=== PATIENT | male | born 1990 | race Caucasian/White ===

== ENCOUNTER 2016-09-16 08:57 | Day surgery (SDC) | payer OTHER ==
[~2016-09-16] VITALS: Ht 175.3 cm; Wt 97.5 kg
[~2016-09-16 08:57] MED LIST: AUGMENTIN875TAB PO; BUT/APAP/CA3 PO; MAALOX/BEN PO; PREVACID15 M1 PO
[2016-09-16 14:37] VITALS: BP 105/66
== END 2016-09-16 11:35 | disposition home or self-care (01) | DRG 392 ==
LOC: ENDO 08:57 → ORM 10:30 → ENDO 11:35 → ORM 11:50 → ENDO 13:00
PROVIDERS: ATTEND Surgery
PROC: 0DB38ZX Excision of Lower Esophagus, Via Natural or Artificial Opening Endoscopic, Diagnostic (ICD-10-PCS; principal; 2016-09-16)
PROC: 0DB78ZX Excision of Stomach, Pylorus, Via Natural or Artificial Opening Endoscopic, Diagnostic (ICD-10-PCS; 2016-09-16)
DX: R13.10 Dysphagia, unspecified (principal); K21.0 Gastro-esophageal reflux disease with esophagitis; K29.50 Unspecified chronic gastritis without bleeding; Z87.891 Personal history of nicotine dependence

== ENCOUNTER → 2018-04-23 | Outpatient (REF) | payer OTHER | END | disposition home or self-care (01) | DRG 696 | LOC: LAB 09:46 | PROVIDERS: ATTEND Nurse Practitioner Family | DX: R30.0 Dysuria (principal) ==

== ENCOUNTER 2020-05-26 | Emergency (ER) | payer OTHER ==
[2020-05-26] MEDS ORDERED: AMLODIPINE BESYL5 MG PO (12:33)
[2020-05-26 12:43] LABS: HEMATOCRIT 41.3 % (39.0-50.0); HEMOGLOBIN 14.3 g/dl (14.0-18.0); IMMATURE GRANULOCYTES 0.2 % (0.0-5.0); MEAN CELL VOLUME 86.2 fL CALC (80.0-100.0); MEAN CORPUSCULAR HGB 29.9 pG CALC (26.0-32.0); MEAN CORPUSCULAR HGB CONC 34.6 g/dL CAL (32.0-36.0); NEUT# 3.79 thou/uL (1.82-7.42); RED BLOOD COUNT 4.79 mill/uL (4.70-6.10); RED CELL DISTRI WIDTH 11.5 % (11.5-15.5)
[2020-05-26 12:56] LABS: ALKALINE PHOSPHATASE 76 u/l (38-126); ANION GAP 11 (6-22 (CALC)); BUN 11 mg/dL (9-20); BUN/CREATININE RATIO 14 (12-20 (CALC)); CARBON DIOXIDE 25 mmol/l (22-30); CHLORIDE 104 mmol/l (95-108); CREATININE 0.8 mg/dL (0.7-1.3); GFR > 60 ML/MIN (>=60 (CALC)); GFR FOR AFR.AMER. > 60 ML/MIN (>=60 (CALC)); LIPASE 60 u/l (23-300); POTASSIUM 4.1 mmol/l (3.5-5.1); SGOT/AST 35 u/l (17-59); SODIUM 136 mmol/l (137-146)
[2020-05-26 12:57] LABS: BILIRUBIN, TOTAL 0.7 mg/dL (0.0-1.4); TOTAL PROTEIN 8.4 g/dL (6.3-8.2)
== END 2020-05-26 15:21 | disposition home or self-care (01) | DRG 392 ==
DX: K29.70 Gastritis, unspecified, without bleeding (principal); I10 Essential (primary) hypertension; K76.0 Fatty (change of) liver, not elsewhere classified; F17.200 Nicotine dependence, unspecified, uncomplicated; Z20.822 Contact with and (suspected) exposure to COVID-19
CPT/HCPCS: Q9967

== ENCOUNTER 2021-01-14 19:21 | Emergency (ER) | payer OTHER ==
[~2021-01-14] VITALS: Ht 175.3 cm; Wt 88.0 kg
[~2021-01-14 19:21] MED LIST changes: +AMLODIPINE BESYL5 MG PO
[2021-01-14] MEDS ORDERED: AUGMENTIN1 M1 PO (20:34)
[2021-01-14] MEDS ORDERED: MEDDOSEPAK PO (20:35)
[2021-01-14 20:42] LABS: URINE BILIRUBIN - DIPSTICK NEGATIVE (NEGATIVE); URINE BLOOD DIPSTICK NEGATIVE (NEGATIVE); URINE COLOR YELLOW; URINE GLUCOSE - DIPSTICK NEGATIVE (NEGATIVE); URINE KETONE NEGATIVE (NEGATIVE); URINE LEUK ESTERASE NEGATIVE (NEGATIVE); URINE PROTEIN - DIPSTICK NEGATIVE (NEG-TRACE); URINE SPECIFIC GRAVITY 1.015; URINE UROBILINOGEN - DIPSTICK 0.2 E.U./dL (0.2)
[2021-01-14 20:43] LABS: HEMOGLOBIN 13.6 g/dl (14.0-18.0); IMMATURE GRANULOCYTES 0.1 % (0.0-5.0); MEAN CELL VOLUME 92.1 fL CALC (80.0-100.0); MEAN CORPUSCULAR HGB 30.6 pG CALC (26.0-32.0); MEAN CORPUSCULAR HGB CONC 33.2 g/dL CAL (32.0-36.0); NEUT# 6.82 thou/uL (1.82-7.42); RED BLOOD COUNT 4.45 mill/uL (4.70-6.10)
[2021-01-14 20:47] LABS: URINE NITRITE - DIPSTICK NEGATIVE (Negative)
[2021-01-14 21:00] LABS: ALBUMIN 4.7 g/dL (3.2-5.0); ALKALINE PHOSPHATASE 74 u/l (38-126); AMYLASE 61 u/l (30-110); ANION GAP 14 (6-22 (CALC)); BILIRUBIN, TOTAL 0.6 mg/dL (0.0-1.4); BUN 11 mg/dL (9-20); BUN/CREATININE RATIO 16 (12-20 (CALC)); CARBON DIOXIDE 25 mmol/l (22-30); CHLORIDE 105 mmol/l (95-108); CREATININE 0.7 mg/dL (0.7-1.3); GFR > 60 ML/MIN (>=60 (CALC)); GFR FOR AFR.AMER. > 60 ML/MIN (>=60 (CALC)); LIPASE 95 u/l (23-300); SGOT/AST 23 u/l (17-59); SODIUM 140 mmol/l (137-146); TOTAL PROTEIN 7.7 g/dL (6.3-8.2)
[2021-01-14] MEDS ORDERED: PROTONIX40 M2 PO (22:11)
[2021-01-14 22:44] VITALS: BP 144/87
== END 2021-01-14 22:55 | disposition home or self-care (01) | DRG 392 ==
LOC: ED 19:21
DX: K29.70 Gastritis, unspecified, without bleeding (principal); K44.9 Diaphragmatic hernia without obstruction or gangrene; I10 Essential (primary) hypertension; K76.0 Fatty (change of) liver, not elsewhere classified; F17.200 Nicotine dependence, unspecified, uncomplicated
CPT/HCPCS: Q9967; S0164

== ENCOUNTER 2021-02-28 15:57 | Emergency (ER) | payer OTHER ==
[~2021-02-28] VITALS: Ht 175.3 cm; Wt 80.0 kg
[~2021-02-28 15:57] MED LIST changes: +AUGMENTIN1 M1 PO; +MEDDOSEPAK PO; +PROTONIX40 M2 PO
[2021-02-28 19:43] LABS: HEMATOCRIT 35.2 % (39.0-50.0); IMMATURE GRANULOCYTES 0.2 % (0.0-5.0); MEAN CELL VOLUME 92.4 fL CALC (80.0-100.0); MEAN CORPUSCULAR HGB 30.2 pG CALC (26.0-32.0); MEAN CORPUSCULAR HGB CONC 32.7 g/dL CAL (32.0-36.0); NEUT# 4.4 thou/uL (1.82-7.42); RED BLOOD COUNT 3.81 mill/uL (4.70-6.10); RED CELL DISTRI WIDTH 11.9 % (11.5-15.5)
[2021-02-28 19:45] LABS: HEMOGLOBIN 11.5 g/dl (14.0-18.0)
[2021-02-28 20:04] LABS: ALBUMIN 4.3 g/dL (3.2-5.0); ALKALINE PHOSPHATASE 73 u/l (38-126); ANION GAP 10 (6-22 (CALC)); BILIRUBIN, TOTAL 0.3 mg/dL (0.0-1.4); BUN 14 mg/dL (9-20); BUN/CREATININE RATIO 15 (12-20 (CALC)); CARBON DIOXIDE 27 mmol/l (22-30); CHLORIDE 106 mmol/l (95-108); CREATININE 0.9 mg/dL (0.7-1.3); GFR > 60 ML/MIN (>=60 (CALC)); GFR FOR AFR.AMER. > 60 ML/MIN (>=60 (CALC)); SGOT/AST 22 u/l (17-59); SODIUM 139 mmol/l (137-146)
[2021-02-28] MEDS ORDERED: NAPROXEN500 MG PO (21:12)
[2021-02-28 21:24] VITALS: BP 129/73
== END 2021-02-28 21:24 | disposition home or self-care (01) | DRG 392 ==
LOC: ED 15:57
PROVIDERS: Emergency Medicine
DX: R13.10 Dysphagia, unspecified (principal); R07.89 Other chest pain
CPT/HCPCS: Q9967

== ENCOUNTER 2021-03-15 14:05 | Emergency (ER) | payer OTHER ==
[~2021-03-15] VITALS: Ht 175.3 cm; Wt 81.8 kg
[~2021-03-15 14:05] MED LIST changes: +NAPROXEN500 MG PO
[2021-03-15] MEDS ORDERED: LOSARTAN POTASS50 MG PO (14:55)
[2021-03-15 14:58] LABS: HEMATOCRIT 36.2 % (39.0-50.0); HEMOGLOBIN 12.1 g/dl (14.0-18.0); IMMATURE GRANULOCYTES 0.1 % (0.0-5.0); MEAN CELL VOLUME 90.5 fL CALC (80.0-100.0); MEAN CORPUSCULAR HGB 30.3 pG CALC (26.0-32.0); MEAN CORPUSCULAR HGB CONC 33.4 g/dL CAL (32.0-36.0); NEUT# 4.91 thou/uL (1.82-7.42); RED CELL DISTRI WIDTH 11.8 % (11.5-15.5)
[2021-03-15 15:07] LABS: ALBUMIN 4.5 g/dL (3.2-5.0); ALKALINE PHOSPHATASE 83 u/l (38-126); ANION GAP 13 (6-22 (CALC)); BUN 13 mg/dL (9-20); BUN/CREATININE RATIO 17 (12-20 (CALC)); CARBON DIOXIDE 26 mmol/l (22-30); CHLORIDE 106 mmol/l (95-108); CREATININE 0.8 mg/dL (0.7-1.3); GFR > 60 ML/MIN (>=60 (CALC)); GFR FOR AFR.AMER. > 60 ML/MIN (>=60 (CALC)); LIPASE 105 u/l (23-300); POTASSIUM 4.1 mmol/l (3.5-5.1); SGOT/AST 25 u/l (17-59); SODIUM 141 mmol/l (137-146); TOTAL PROTEIN 7.6 g/dL (6.3-8.2)
[2021-03-15 15:09] LABS: BILIRUBIN, TOTAL 0.5 mg/dL (0.0-1.4)
[2021-03-15 18:22] VITALS: BP 112/63
== END 2021-03-15 18:34 | disposition home or self-care (01) | DRG 310 ==
LOC: ED 14:05
DX: R00.2 Palpitations (principal); R07.9 Chest pain, unspecified

== ENCOUNTER 2021-06-27 17:48 | Emergency (ER) | payer OTHER ==
[~2021-06-27] VITALS: Ht 175.3 cm; Wt 81.8 kg
[~2021-06-27 17:48] MED LIST changes: +LOSARTAN POTASS50 MG PO
[2021-06-27] MEDS ORDERED: VIBRAMYCIN100 M2 PO (19:09)
[2021-06-27 19:25] VITALS: BP 140/94
== END 2021-06-27 19:42 | disposition home or self-care (01) | DRG 603 ==
LOC: ED 17:48
DX: L03.114 Cellulitis of left upper limb (principal); T65.891A Toxic effect of other specified substances, accidental (unintentional), initial encounter

== ENCOUNTER 2021-09-03 15:48 | Emergency (ER) | payer OTHER ==
[~2021-09-03] VITALS: Ht 175.3 cm; Wt 84.8 kg
[~2021-09-03 15:48] MED LIST changes: +VIBRAMYCIN100 M2 PO
[2021-09-03 16:07] VITALS: BP 140/86
[2021-09-03 16:30] VITALS: BP 140/89
[2021-09-03 17:00] VITALS: BP 130/86
[2021-09-03] MEDS ORDERED: FLEXERIL5 M1 PO (17:27)
[2021-09-03] MEDS ORDERED: NAPROXEN500 MG PO (17:27)
[2021-09-03 17:30] VITALS: BP 143/86
[2021-09-03 17:32] VITALS: BP 143/86
== END 2021-09-03 17:52 | disposition home or self-care (01) | DRG 552 ==
LOC: ED 15:48
DX: M43.6 Torticollis (principal)

== ENCOUNTER 2021-10-14 01:38 | Emergency (ER) | payer OTHER ==
[~2021-10-14] VITALS: Ht 175.3 cm; Wt 85.0 kg
[~2021-10-14 01:38] MED LIST changes: +CETIRIZ/PSE1 TAB PO; +FLEXERIL5 M1 PO; +VITAMIN B COMPL1 TAB PO
[2021-10-14 02:12] LABS: HEMATOCRIT 35.9 % (39.0-50.0); HEMOGLOBIN 12.3 g/dl (14.0-18.0); IMMATURE GRANULOCYTES 0.2 % (0.0-5.0); MEAN CORPUSCULAR HGB CONC 34.3 g/dL CAL (32.0-36.0); NEUT# 2.51 thou/uL (1.82-7.42); RED BLOOD COUNT 4.24 mill/uL (4.70-6.10); RED CELL DISTRI WIDTH 12.6 % (11.5-15.5)
[2021-10-14 02:20] LABS: MEAN CELL VOLUME 84.7 fL CALC (80.0-100.0)
[2021-10-14 02:33] LABS: ALBUMIN 4.4 g/dL (3.2-5.0); ALKALINE PHOSPHATASE 73 u/l (38-126); ANION GAP 13 (6-22 (CALC)); BUN 15 mg/dL (9-20); BUN/CREATININE RATIO 19 (12-20 (CALC)); CARBON DIOXIDE 24 mmol/l (22-30); CHLORIDE 108 mmol/l (95-108); CREATININE 0.8 mg/dL (0.7-1.3); GFR FOR AFR.AMER. > 60 ML/MIN (>=60 (CALC)); GFR OTHER RACES > 60 ML/MIN (>=60 (CALC)); POTASSIUM 3.7 mmol/l (3.5-5.1); SGOT/AST 25 u/l (17-59); SODIUM 142 mmol/l (137-146); TOTAL PROTEIN 7.3 g/dL (6.3-8.2)
[2021-10-14 02:41] LABS: ACT PARTIAL THROMBO TIME 25.4 SECONDS (20.0-32.5); PROTHROMBIN TIME 10.1 SECONDS (9.0-12.5)
[2021-10-14 02:45] LABS: MYOGLOBIN 20 ng/mL (0 - 121)
[2021-10-14 02:50] LABS: BILIRUBIN, TOTAL 0.2 mg/dL (0.0-1.4)
[2021-10-14 04:39] VITALS: BP 137/86
== END 2021-10-14 04:41 | disposition home or self-care (01) | DRG 310 ==
LOC: ED 01:38
PROVIDERS: Family Medicine
DX: R00.2 Palpitations (principal)

== ENCOUNTER 2021-12-04 06:52 | Day surgery (SDC) | payer OTHER ==
[~2021-12-04] VITALS: Ht 172.7 cm; Wt 83.9 kg
[~2021-12-04 06:52] MED LIST changes: +AZELASTINE HCL0.1 %; +FLONASE AL50 MCG/ACT; +INDERAL10 M1 PO; +LORATADINE10 M3
[2021-12-04 08:51] VITALS: BP 107/76
[2021-12-05] MEDS ORDERED: OMEPRAZOLE DR40 MG PO (16:15)
== END 2021-12-04 08:40 | disposition home or self-care (01) | DRG 392 ==
LOC: ORM 06:52
PROVIDERS: ATTEND Surgery
PROC: 0DB98ZX Excision of Duodenum, Via Natural or Artificial Opening Endoscopic, Diagnostic (ICD-10-PCS; principal; 2021-12-04)
PROC: 0DB78ZX Excision of Stomach, Pylorus, Via Natural or Artificial Opening Endoscopic, Diagnostic (ICD-10-PCS; 2021-12-04)
DX: R13.10 Dysphagia, unspecified (principal); K29.70 Gastritis, unspecified, without bleeding; K29.80 Duodenitis without bleeding; E89.0 Postprocedural hypothyroidism

== ENCOUNTER 2021-12-26 08:40 | Emergency (ER) | payer OTHER ==
[~2021-12-26] VITALS: Ht 172.7 cm; Wt 85.0 kg
[~2021-12-26 08:40] MED LIST changes: +OMEPRAZOLE DR40 MG PO
[2021-12-26 09:43] VITALS: BP 145/82
[2021-12-26] MEDS ORDERED: MOTRIN400 MG/TAB PO (10:46)
[2021-12-26] MEDS ORDERED: VOLTAREN1%GEL TOP (10:46)
== END 2021-12-26 10:49 | disposition home or self-care (01) | DRG 556 ==
LOC: ED 08:40
DX: M25.512 Pain in left shoulder (principal); M25.561 Pain in right knee

== ENCOUNTER 2022-09-17 19:11 | Emergency (ER) | payer OTHER ==
[~2022-09-17] VITALS: Ht 175.3 cm; Wt 90.7 kg
[~2022-09-17 19:11] MED LIST changes: +COZAAR50 MG PO; +DEPAKOTE ER500 MG PO; +DOXYCYCLINE100 MG PO; +MOTRIN400 MG/TAB PO; +MUPIROCIN2 % EX; +VOLTAREN1%GEL TOP; +WELLBUTRIN XL150 MG PO
[2022-09-17 20:28] VITALS: BP 126/85
[2022-09-17 20:30] VITALS: BP 126/83
[2022-09-17] MEDS ORDERED: VALTREX1 GM PO (20:35)
[2022-09-17] MEDS ORDERED: BACTRIM DS1 TAB PO (20:35)
[2022-09-17 21:00] VITALS: BP 123/77
[2022-09-17 21:21] VITALS: BP 123/77
== END 2022-09-17 21:23 | disposition home or self-care (01) | DRG 866 ==
LOC: ED 19:11
DX: B02.8 Zoster with other complications (principal); L03.221 Cellulitis of neck

== ENCOUNTER → 2023-08-10 | Day surgery (SDC) | payer OTHER ==
[~2023-08-10] VITALS: Ht 172.7 cm; Wt 99.8 kg
[~2023-08-10] MED LIST changes: +ABILIFY2 MG PO; +ABILIFY5 MG PO; +ACETAMINOPHEN 100 ML IV ONE; +ALLERGY RE50 MCG/ACT; +AMOX/K CLAV875 M1 PO; +BACTRIM DS1 TAB PO; +BUSPAR10 MG PO; +CVS OMEPRAZOLE20 MG PO; +DIVALPROEX SOD500 MG PO; +ELAVIL25 M1 PO; +EMGALITY120 MG/ML IM; +GLUCAGON HCL (Rdna) 1 MG VIAL ONE; +HYDROmorphone HCL 2 MG/AMP ONE; +INDERAL10 MG PO; +Iopamidol 300 (Isovue) 61% 100ML SDV IV ONE; +KETOROLAC TROMETHAMINE 30 MG/ML SDV ONE; +KETOROLAC10 MG PO; +LACTATED RINGER'S 1,000 ML IV ONE; +LACTULOSE10 GM; +LIDOCAINE HCL 2% 2ML SDV IV ONE; +LIDOcaine HCl 1% (Local Anesth.) 20 ML VIAL ONE; +LORTAB 5/3255 MG PO; +MINIPRESS1 MG PO; +NITROSTAT0.4 MG SL; +ONDANSETRON HCl 4 MG/2 ML SDV ONE; +ONDANSETRON4 MG PO; +PERCOCET 5/325M1 TAB PO; +PROPOFOL 200 MG/20 ML VIAL IV ONE; +REGLAN10 MG PO; +RIZATRIPTAN BEN10 MG; +ROCURONIUM BROMIDE 10 MG/ML 5ML VIAL IV ONE; +SODIUM CHLORIDE 0.9% 50 ML IV ONE; +SODIUM CHLORIDE 1,000 ML BTL IR ONE; +STERILE WATER FOR IRRIGATION 1,000 ML BTL IR ONE; +SUCCINYLCHOLINE CHLORIDE 20 MG/ML 10ML VIAL IV ONE; +SUGAMMADEX SODIUM 200 MG/2 ML SDV IV ONE; +VALTREX1 GM PO; +ZESTRIL10 M1 PO; +ZOLOFT50 MG PO; +ZYRTEC10 MG PO; +ceFAZolin Sodium 2 GM/VIAL SDV ONE
[2023-08-10 12:48] VITALS: BP 111/78
== END | disposition home or self-care (01) | DRG 419 ==
LOC: ORM 06-29 08:50
PROVIDERS: ATTEND Surgery
PROC: 0FT44ZZ Resection of Gallbladder, Percutaneous Endoscopic Approach (ICD-10-PCS; principal; 2023-08-10)
DX: K80.10 Calculus of gallbladder with chronic cholecystitis without obstruction (principal); I10 Essential (primary) hypertension; K21.9 Gastro-esophageal reflux disease without esophagitis; Z87.820 Personal history of traumatic brain injury
CPT/HCPCS: J0131; J0690; J1610; Q9966

== ENCOUNTER 2023-08-12 07:54 | Emergency (ER) | payer OTHER ==
[~2023-08-12] VITALS: Ht 172.7 cm; Wt 86.2 kg
[~2023-08-12 07:54] MED LIST changes: -ACETAMINOPHEN 100 ML IV ONE; -AMOX/K CLAV875 M1 PO; -GLUCAGON HCL (Rdna) 1 MG VIAL ONE; -HYDROmorphone HCL 2 MG/AMP ONE; -Iopamidol 300 (Isovue) 61% 100ML SDV IV ONE; -KETOROLAC TROMETHAMINE 30 MG/ML SDV ONE; -LACTATED RINGER'S 1,000 ML IV ONE; -LIDOCAINE HCL 2% 2ML SDV IV ONE; -LIDOcaine HCl 1% (Local Anesth.) 20 ML VIAL ONE; -ONDANSETRON HCl 4 MG/2 ML SDV ONE; -PROPOFOL 200 MG/20 ML VIAL IV ONE; -ROCURONIUM BROMIDE 10 MG/ML 5ML VIAL IV ONE; -SODIUM CHLORIDE 0.9% 50 ML IV ONE; -SODIUM CHLORIDE 1,000 ML BTL IR ONE; -STERILE WATER FOR IRRIGATION 1,000 ML BTL IR ONE; -SUCCINYLCHOLINE CHLORIDE 20 MG/ML 10ML VIAL IV ONE; -SUGAMMADEX SODIUM 200 MG/2 ML SDV IV ONE; -ceFAZolin Sodium 2 GM/VIAL SDV ONE
[2023-08-12 07:58] VITALS: BP 144/94
[2023-08-12] MEDS ORDERED: OMEPRAZOLE DR40 MG PO (08:20)
[2023-08-12] MEDS ORDERED: AMOX/K CLAV875 M1 PO (08:20)
[2023-08-12 08:30] VITALS: BP 144/94
== END 2023-08-12 08:33 | disposition home or self-care (01) | DRG 863 ==
LOC: ED 07:54
DX: T81.41XA Infection following a procedure, superficial incisional surgical site, initial encounter (principal); L03.311 Cellulitis of abdominal wall; I10 Essential (primary) hypertension; K21.9 Gastro-esophageal reflux disease without esophagitis; Y83.6 Removal of other organ (partial) (total) as the cause of abnormal reaction of the patient, or of later complication, without mention of misadventure at the time of the procedure; Z87.820 Personal history of traumatic brain injury; Z72.0 Tobacco use

== ENCOUNTER 2023-09-08 16:34 | Emergency (ER) | payer OTHER ==
[~2023-09-08] VITALS: Ht 172.7 cm; Wt 97.0 kg
[2023-09-08] VITALS (28 sets, daily range): BP systolic 128–158; BP diastolic 89–105
[~2023-09-08 16:34] MED LIST changes: +AMOX/K CLAV875 M1 PO
[2023-09-08 17:11] LABS: BASO% 0.9 % (0-3); EOS% 6.1 % (0-8); HEMATOCRIT 41.4 % (39.0-50.0); HEMOGLOBIN 14.2 g/dl (14.0-18.0); IMMATURE GRANULOCYTES 0.3 % (0.0-5.0); LYMPH% 30.7 % (15-41); MEAN CELL VOLUME 87.2 fL CALC (80.0-100.0); MEAN CORPUSCULAR HGB 29.9 pG CALC (26.0-32.0); MEAN CORPUSCULAR HGB CONC 34.3 g/dL CAL (32.0-36.0); MONO% 11.4 % (2-13); NEUT# 3.24 thou/uL (1.82-7.42); NEUT% 50.6 % (42-76); RED BLOOD COUNT 4.75 mill/uL (4.70-6.10)
[2023-09-08 17:25] LABS: ALKALINE PHOSPHATASE 69 u/l (38-126); ANION GAP 13 (6-22 (CALC)); BILIRUBIN, TOTAL 0.5 mg/dL (0.2-1.3); BUN 13 mg/dL (9-20); BUN/CREATININE RATIO 11 (12-20 (CALC)); CARBON DIOXIDE 26 mmol/l (22-30); CHLORIDE 108 mmol/l (95-108); CREATININE 1.2 mg/dL (0.7-1.3); ESTIMATED GFR 81 ML/MIN (>=90 (CALC)); POTASSIUM 3.6 mmol/l (3.5-5.1); SGOT/AST 52 u/l (17-59); SODIUM 143 mmol/l (137-146); TOTAL PROTEIN 8.5 g/dL (6.3-8.2)
[2023-09-08] MEDS ORDERED: LIDOCAINE VISCOUS 2% 15 ML UDC PO ONE ×3 (17:40→22:35)
[2023-09-08] MEDS ORDERED: ALUM & MAG HYDROX-SIMETHICONE 30 ML PO ONE ×3 (17:40→22:35)
[2023-09-08 17:55] LABS: TSH, 3RD GENERATION 3.36 uIU/mL (0.47 - 4.68)
[2023-09-08] MEDS ORDERED: Pantoprazole Sodium 40 MG VIAL (Protonix) IV ONE (18:55)
[2023-09-08] MEDS ORDERED: LOSARTAN Potassium 25 MG/TAB PO ONE (22:35)
[2023-09-08] MEDS ORDERED: PROPRANOLOL HCL 10 MG TAB PO ONE (22:35)
[2023-09-08] MEDS ORDERED: DICYCLOMINE HCL20 MG PO (23:16)
[2023-09-08] MEDS ORDERED: OMEPRAZOLE DR40 MG PO (23:16)
== END 2023-09-08 23:45 | disposition home or self-care (01) | DRG 392 ==
LOC: ED 16:34
PROVIDERS: Family Medicine
DX: K29.70 Gastritis, unspecified, without bleeding (principal); I10 Essential (primary) hypertension; F41.9 Anxiety disorder, unspecified; Z87.820 Personal history of traumatic brain injury; K21.9 Gastro-esophageal reflux disease without esophagitis; Z72.0 Tobacco use
CPT/HCPCS: J2470; Q9967

== ENCOUNTER 2024-02-10 16:20 | Emergency (ER) | payer OTHER ==
[~2024-02-10] VITALS: Ht 172.7 cm; Wt 104.0 kg
[~2024-02-10 16:20] MED LIST changes: +CHOLESTYRAMINE4 G1 PO; +DICYCLOMINE HCL20 MG PO
[2024-02-10 20:00] VITALS: BP 150/92
== END 2024-02-10 20:00 | disposition left against medical advice (07) | DRG 951 ==
LOC: ED 16:20 → LWOBS 20:00
DX: Z53.21 Procedure and treatment not carried out due to patient leaving prior to being seen by health care provider (principal)

== ENCOUNTER 2024-03-08 17:39 | Emergency (ER) | payer OTHER ==
[~2024-03-08] VITALS: Ht 172.7 cm; Wt 98.0 kg
[2024-03-08] VITALS (17 sets, daily range): BP systolic 123–145; BP diastolic 91–101
[2024-03-08] MEDS ORDERED: KETOROLAC TROMETHAMINE 30 MG/ML SDV IV ONE (19:30)
[2024-03-08] MEDS ORDERED: ONDANSETRON HCl 4 MG/2 ML SDV IV ONE (19:30)
[2024-03-08] MEDS ORDERED: MORPHINE SULFATE 4 MG/ML VIAL IV ONE (19:30)
[2024-03-08 19:43] LABS: BASO% 1.2 % (0-3); EOS% 3.9 % (0-8); HEMATOCRIT 40.1 % (39.0-50.0); HEMOGLOBIN 13.5 g/dl (14.0-18.0); IMMATURE GRANULOCYTES 0.3 % (0.0-5.0); LYMPH% 35.6 % (15-41); MEAN CELL VOLUME 87.7 fL CALC (80.0-100.0); MEAN CORPUSCULAR HGB 29.5 pG CALC (26.0-32.0); MEAN CORPUSCULAR HGB CONC 33.7 g/dL CAL (32.0-36.0); MONO% 8.8 % (2-13); NEUT# 2.97 thou/uL (1.82-7.42); NEUT% 50.2 % (42-76); RED BLOOD COUNT 4.57 mill/uL (4.70-6.10); RED CELL DISTRI WIDTH 12.3 % (11.5-15.5)
[2024-03-08 19:58] LABS: ALBUMIN 4.2 g/dL (3.2-5.0); ALKALINE PHOSPHATASE 63 u/l (38-126); ANION GAP 12 (6-22 (CALC)); BILIRUBIN, TOTAL 0.5 mg/dL (0.2-1.3); BUN 14 mg/dL (9-20); BUN/CREATININE RATIO 17 (12-20 (CALC)); CARBON DIOXIDE 26 mmol/l (22-30); CHLORIDE 108 mmol/l (95-108); CPK 257 u/l (55-170); CREATININE 0.9 mg/dL (0.7-1.3); ESTIMATED GFR 114 ML/MIN (>=90 (CALC)); POTASSIUM 3.8 mmol/l (3.5-5.1); SGOT/AST 37 u/l (17-59); SODIUM 142 mmol/l (137-146)
[2024-03-08 22:27] LABS: URINE BILIRUBIN - DIPSTICK Negative (NEGATIVE); URINE BLOOD DIPSTICK Negative (NEGATIVE); URINE COLOR Yellow; URINE GLUCOSE - DIPSTICK Negative (NEGATIVE); URINE KETONE Negative (NEGATIVE); URINE LEUK ESTERASE Negative (NEGATIVE); URINE NITRITE - DIPSTICK Negative (Negative); URINE PROTEIN - DIPSTICK 30 mg/dL (NEG-TRACE); URINE SPECIFIC GRAVITY 1.025; URINE UROBILINOGEN - DIPSTICK 0.2 E.U./dL (0.2)
[2024-03-08 22:35] LABS: URINE MUCUS MANY hpf (NONE-FEW); URINE RBC 0-2 RBC/hpf (0-5)
[2024-03-09] VITALS (7 sets, daily range): BP systolic 126–138; BP diastolic 90–97
[2024-03-09] MEDS ORDERED: PREDNISONE20 MG PO (01:19)
[2024-03-09] MEDS ORDERED: ATIVAN1 M1 PO (01:19)
[2024-03-09] MEDS ORDERED: cloNIDine HCL 0.1 MG/TAB PO ONE (01:30)
== END 2024-03-09 01:49 | disposition home or self-care (01) | DRG 552 ==
LOC: ED 17:39
PROVIDERS: Internal Medicine; Nurse Practitioner
DX: M54.2 Cervicalgia (principal); R07.9 Chest pain, unspecified; I10 Essential (primary) hypertension
CPT/HCPCS: J2405; Q9967

== ENCOUNTER 2024-03-16 14:20 | Emergency (ER) | payer OTHER ==
[~2024-03-16] VITALS: Ht 172.7 cm; Wt 100.0 kg
[2024-03-16] VITALS (21 sets, daily range): BP systolic 130–149; BP diastolic 86–102
[~2024-03-16 14:20] MED LIST changes: +ATIVAN1 M1 PO; +PREDNISONE20 MG PO
[2024-03-16 15:46] LABS: URINE BILIRUBIN - DIPSTICK Negative (NEGATIVE); URINE BLOOD DIPSTICK Negative (NEGATIVE); URINE GLUCOSE - DIPSTICK Negative (NEGATIVE); URINE KETONE Negative (NEGATIVE); URINE LEUK ESTERASE Negative (NEGATIVE); URINE NITRITE - DIPSTICK Negative (Negative); URINE PROTEIN - DIPSTICK Trace mg/dL (NEG-TRACE); URINE UROBILINOGEN - DIPSTICK 0.2 E.U./dL (0.2)
[2024-03-16 15:47] LABS: URINE COLOR Yellow
[2024-03-16 15:47] LABS: BASO% 0.3 % (0-3); EOS% 0.8 % (0-8); HEMOGLOBIN 14.1 g/dl (14.0-18.0); IMMATURE GRANULOCYTES 0.7 % (0.0-5.0); MEAN CELL VOLUME 87.5 fL CALC (80.0-100.0); MEAN CORPUSCULAR HGB 29.4 pG CALC (26.0-32.0); MEAN CORPUSCULAR HGB CONC 33.6 g/dL CAL (32.0-36.0); MONO% 7.3 % (2-13); NEUT# 6.05 thou/uL (1.82-7.42); NEUT% 63.9 % (42-76); RED BLOOD COUNT 4.8 mill/uL (4.70-6.10); RED CELL DISTRI WIDTH 12.5 % (11.5-15.5)
[2024-03-16 15:58] LABS: ALBUMIN 4.9 g/dL (3.2-5.0); ALKALINE PHOSPHATASE 61 u/l (38-126); ANION GAP 14 (6-22 (CALC)); BILIRUBIN, TOTAL 0.6 mg/dL (0.2-1.3); BUN 12 mg/dL (9-20); BUN/CREATININE RATIO 16 (12-20 (CALC)); CARBON DIOXIDE 28 mmol/l (22-30); CHLORIDE 104 mmol/l (95-108); CREATININE 0.8 mg/dL (0.7-1.3); ESTIMATED GFR 118 ML/MIN (>=90 (CALC)); POTASSIUM 3.8 mmol/l (3.5-5.1); SGOT/AST 35 u/l (17-59); SODIUM 142 mmol/l (137-146); TOTAL PROTEIN 8.2 g/dL (6.3-8.2)
[2024-03-16] MEDS ORDERED: CLONIDINE0.1 MG PO (20:13)
== END 2024-03-16 20:30 | disposition home or self-care (01) | DRG 305 ==
LOC: ED 14:20
PROVIDERS: Nurse Practitioner
DX: I10 Essential (primary) hypertension (principal); Z87.820 Personal history of traumatic brain injury
CPT/HCPCS: Q9967

== ENCOUNTER 2024-03-25 23:11 | Emergency (ER) | payer OTHER, BC ==
[~2024-03-25] VITALS: Ht 172.7 cm; Wt 100.0 kg
[~2024-03-25 23:11] MED LIST changes: +CLONIDINE0.1 MG PO
[2024-03-26 00:09] VITALS: BP 136/86
[2024-03-26 00:15] VITALS: BP 146/97
[2024-03-26] MEDS ORDERED: GABAPENTIN 100 MG/CAP PO ONE (00:20)
[2024-03-26] MEDS ORDERED: oxyCODONE HCL ER 10 MG/TAB PO ONE (00:20)
[2024-03-26] MEDS ORDERED: ACETAMINOPHEN 500 MG TAB PO ONE (00:20)
[2024-03-26] MEDS ORDERED: CELEBREX200 MG PO (00:24)
[2024-03-26] MEDS ORDERED: LYRICA50 MG PO (00:24)
[2024-03-26 00:30] VITALS: BP 141/88
[2024-03-26 00:45] VITALS: BP 127/77
[2024-03-26 00:57] VITALS: BP 127/77
== END 2024-03-26 00:57 | disposition home or self-care (01) | DRG 556 ==
LOC: ED 23:11
DX: M25.512 Pain in left shoulder (principal); I10 Essential (primary) hypertension; Z87.820 Personal history of traumatic brain injury

== ENCOUNTER 2024-04-23 14:49 | Emergency (ER) | payer OTHER, BC ==
[~2024-04-23] VITALS: Ht 172.7 cm; Wt 104.0 kg
[2024-04-23] VITALS (7 sets, daily range): BP systolic 141–154; BP diastolic 102–108
[~2024-04-23 14:49] MED LIST changes: +CELEBREX200 MG PO; +LYRICA50 MG PO
[2024-04-23] MEDS ORDERED: ORPHENADRINE CITRATE 30 MG/ML AMP IM ONE (15:15)
[2024-04-23] MEDS ORDERED: methylPREDNISolone SODIUM SUCC 125 MG/2 ML SDV IM ONE (15:15)
[2024-04-23] MEDS ORDERED: DICLOFENAC SODIUM 75 MG/TAB PO ONE (16:10)
[2024-04-23] MEDS ORDERED: VOLTAREN1%GEL TOP (16:29)
== END 2024-04-23 16:33 | disposition home or self-care (01) | DRG 556 ==
LOC: ED 14:49
DX: M25.512 Pain in left shoulder (principal); I10 Essential (primary) hypertension
CPT/HCPCS: J2360